=== PATIENT | female | born 1985 | race Caucasian/White ===

== ENCOUNTER 2016-08-10 20:45 | Emergency (ER) | payer BC ==
[~2016-08-10] VITALS: Ht 162.6 cm; Wt 59.0 kg
[2016-08-10] MEDS ORDERED: LEVO100T PO (21:13)
[2016-08-10] MEDS ORDERED: HYDROCODONE/APAP 5-325MG TABLET PO ONE (21:30)
[2016-08-10] MEDS ORDERED: ONDANSETRON ODT 4 MG TAB.RAPDIS SL ONE (21:30)
[2016-08-10] MEDS ORDERED: ONDANSETRON ODT 4 MG TAB.RAPDIS ONE (21:52)
[2016-08-10] MEDS ORDERED: HYDROCODONE/APAP 5-325MG TABLET ONE (21:53)
[2016-08-10 21:55] LABS: BASOPHILS # (AUTO) 0.1 K/uL (0.0-0.2); BASOPHILS % (AUTO) 0.6 % (0.0-2.0); EOSINOPHILS # (AUTO) 0.2 K/uL (0.0-0.7); EOSINOPHILS % (AUTO) 2.5 % (0.0-7.0); HEMATOCRIT 39.7 % (37.0-47.0); HEMOGLOBIN 13.2 g/dL (12.0-16.0); LYMPHOCYTES % (AUTO) 34.6 % (20.5-51.5); MEAN CORPUSCULAR HEMOGLOBIN 29.6 uug (27.0-31.0); MEAN CORPUSCULAR HGB CONC 33 g/dL (32.0-37.0); MEAN CORPUSCULAR VOLUME 89.3 fL (81.0-99.0); MONOCYTES # (AUTO) 0.5 K/uL (0.1-1.30); MONOCYTES % (AUTO) 6.3 % (0.0-11.0); NEUTROPHILS # (AUTO) 4.9 K/uL (1.8-8.9); PLATELET COUNT (AUTO) 313 K/uL (150-450); RED BLOOD CELL COUNT(AUTO) 4.44 MIL/uL (4.20-5.40); RED CELL DISTRIBUTION WIDTH 12.7 % (11.5-14.5); WHITE BLOOD COUNT (AUTO) 8.7 K/uL (4.0-11.2)
[2016-08-10 21:56] LABS: *BILIRUBIN,URIN NEGATIVE (NEGATIVE); *BLOOD, URINE Trace-lysed (NEGATIVE); *COLOR,URINE YELLOW (YELLOW); *KETONES,URINE NEGATIVE (NEGATIVE); *PROTEIN,URINE NEGATIVE (NEGATIVE); *UROBILINOGEN,URINE 0.2 E.U./dl (NORMAL); LEUKOCYTE ESTERASE ,URINE 2+ (NEGATIVE); NITRITE, URINE NEGATIVE (NEGATIVE); PH,URINE 5.5 (5.0-8.0); UGLUCOSE NEGATIVE (NEGATIVE)
[2016-08-10 21:59] LABS: CREATININE 0.8 mg/dL (0.6-1.3)
[2016-08-10 22:14] LABS: ALBUMIN 4.2 g/dL (3.4-5.0); BILIRUBIN,DIRECT 0.1 mg/dL (0.0-0.2); BILIRUBIN,TOTAL 0.3 mg/dL (0.2-1.0)
[2016-08-10 22:22] LABS: *CLARITY,URINE HAZY (CLEAR)
[2016-08-10 22:25] LABS: BACTERIA,URINE FEW /HPF (NONE SEEN); MUCUS,URINE MODERATE /LPF (0-FEW); SQUAMOUS EPITHELIAL CELL,UR MODERATE /HPF (NONE SEEN)
[2016-08-10] MEDS ORDERED: DIAZEPAM 2 MG TABLET PO ONE (22:30)
[2016-08-10] MEDS ORDERED: DIAZEPAM 5 MG TABLET ONE (22:38)
[2016-08-10] MEDS ORDERED: IV NORMAL SALINE 250 ML IV ONE (23:05)
[2016-08-10] MEDS ORDERED: NORMAL SALINE FLUSH 10 ML DISP.SYRIN ONE (23:05)
[2016-08-10] MEDS ORDERED: IOHEXOL 350 100 ML INFUS..BTL ONE (23:05)
[2016-08-10] MEDS ORDERED: LORAZEPAM 2 MG/1 ML VIAL ONE (23:13)
[2016-08-10] MEDS ORDERED: LORAZEPAM 2 MG/1 ML VIAL IV ONE (23:15)
[2016-08-10 23:16] LABS: *URINE HCG, QUAL NEGATIVE (NEGATIVE)
[2016-08-10] MEDS ORDERED: IV NORMAL SALINE 1000 ML BAG IV ONE (23:45)
[2016-08-11] MEDS ORDERED: GABAPENTIN 300 MG CAPSULE PO ONE (00:30)
[2016-08-11] MEDS ORDERED: GABAPENTIN 300 MG CAPSULE ONE (00:41)
[2016-08-11] MEDS ORDERED: LORAZEPAM 2 MG/1 ML VIAL ONE (00:58)
[2016-08-11] MEDS ORDERED: LORAZEPAM 2 MG/1 ML VIAL IV ONE (01:00)
[2016-08-11] MEDS ORDERED: ONDANSETRON 4 MG/2 ML VIAL IV ONE ×2 (01:15→04:00)
[2016-08-11] MEDS ORDERED: MORPHINE SULFATE 2 MG/1 ML DISP.SYRIN IV ONE (01:15)
[2016-08-11] MEDS ORDERED: ONDANSETRON 4 MG/2 ML VIAL ONE (01:25)
[2016-08-11] MEDS ORDERED: MORPHINE SULFATE 2 MG/1 ML DISP.SYRIN ONE (01:25)
[2016-08-11] MEDS ORDERED: ONDANSETRON 4 MG/2 ML VIAL IM ONE (02:00)
[2016-08-11] MEDS ORDERED: MORPHINE SULFATE 2 MG/1 ML DISP.SYRIN IM ONE (02:00)
[2016-08-11] MEDS ORDERED: LORAZEPAM 0.5 MG TABLET PO ONE (03:30)
[2016-08-11] MEDS ORDERED: ONDANSETRON ODT 4 MG TAB.RAPDIS SL ONE (03:30)
[2016-08-11] MEDS ORDERED: HYDROMORPHONE 1 MG/1 ML DISP.SYRIN IM ONE ×2 (03:30→04:00)
[2016-08-11] MEDS ORDERED: ONDANSETRON ODT 4 MG TAB.RAPDIS ONE (03:42)
[2016-08-11] MEDS ORDERED: HYDROMORPHONE 1 MG/1 ML DISP.SYRIN ONE (03:43)
[2016-08-11] MEDS ORDERED: LORAZEPAM 1 MG TABLET ONE (03:43)
--- NOTE | 2016-08-11 03:58 | NUR ---
Patient discharged to home in stable conditon. Written and verbal after care instructions given. Patient verbalizes understanding of instructions.
[2016-08-11] MEDS ORDERED: diphenhydrAMINE 50 MG/1 ML VIAL IM ONE (04:00)
== END 2016-08-11 04:02 | disposition home or self-care (01) ==
LOC: ER 20:45
DX: E05.80 Other thyrotoxicosis without thyrotoxic crisis or storm (principal); M25.512 Pain in left shoulder; F41.9 Anxiety disorder, unspecified; F12.10 Cannabis abuse, uncomplicated; Z85.850 Personal history of malignant neoplasm of thyroid; Z85.3 Personal history of malignant neoplasm of breast; Z88.1 Allergy status to other antibiotic agents
CPT/HCPCS: 36415 ×2; 71010; 71275; 80048; 80076; 81001; 83605; 83880; 84443; 84484 ×2; 84703; 85025; 85379; 85730; 87086; 93005; 96361; 96372 ×3; 96374; 96376; 99285; A4663; J1170; J2060 ×2; J2270; J2405; J3490; J7030; J7050; Q0162 ×2; Q9967; 70030-TC